=== PATIENT | male | born 1975 | race Caucasian/White ===

== ENCOUNTER 2016-03-04 18:32 | Emergency (ER) | payer OTHER ==
[~2016-03-04] VITALS: Ht 175.3 cm; Wt 96.4 kg
[~2016-03-04 18:32] MED LIST: ALPR-138 PO; LORT5TAB PO; OMEP20CA5 PO; PERC7.5T13 PO; PROM25SU8 PO; ZOCO40TA PO
[2016-03-04 19:07] VITALS: BP 144/96; PULSE 104; RESP 20; TEMP 98.7; O2SAT 96
[2016-03-04 19:45] VITALS: BP 148/83; PULSE 105; RESP 18; O2SAT 95
[2016-03-04] MEDS ORDERED: ONDANSETRON ODT 4 MG TAB PO ONE (19:45)
--- NOTE | 2016-03-04 20:07 | PD ---
HPI . Head injury Chief Complaint: Head Injury Time Seen by Provider: 19:38 Travel History International Travel<30 days: No Contact w/Intl Traveler<30days: No Traveled to known affect area: No History of Present Illness HPI Patient presents for evaluation of possible head injury. He states he was carrying in some questions decorations and this in the wires of his crisp slides. He fell face first. He believes that he had a loss of consciousness. He is now complaining of feeling dazed and nauseous. [facility] Past Medical History Anxiety: Yes High Cholesterol: Yes Diminished Hearing: No Diverticulitis: Yes GERD: Yes Kidney Stones: Yes Tetanus Vaccination: < 5 Years Influenza Vaccination: Yes Past Surgical History Surgical History: No Previous Surgery Social History Alcohol Use: Yes (SOCIALLY) Tobacco Use: No (Quit in 2011) Substance Use: No Allergies-Medications (Allergen,Severity, Reaction): Coded Allergies: Codeine (Verified Allergy, Severe, NAUSEA AND VOMITING, 03/04/16) Reported Meds & Prescriptions Reported Meds & Active Scripts Active Reported Chlorthalidone 25 Mg Tab 25 Mg PO DAILY Lorazepam 0.5 Mg Tab 0.5 Mg PO DAILY PRN Simvastatin 40 Mg Tab 40 Mg PO DAILY Omeprazole 20 Mg Tab 20 Mg PO DAILY Review of Systems Except as stated in HPI: all other systems reviewed are Neg HENT: Positive: Neck Pain Neurologic: Positive: Other (dazed), No: Focal Abnormalities, Slurred Speech Physical Exam Narrative GENERAL: Awake and alert and in no acute distress SKIN: Warm and dry. Superficial abrasions on the right side of his face. HEAD: Atraumatic. Normocephalic. No obvious trauma except for the above-noted facial abrasions. EYES: Pupils equal and round. ENT: No nasal bleeding or discharge. Mucous membranes pink and moist. NECK: Trachea midline. He does have some diffuse cervical spine tenderness. CARDIOVASCULAR: Regular rate and rhythm. RESPIRATORY: No accessory muscle use. MUSCULOSKELETAL: No obvious deformities. No edema. Moving all 4 extremities equally. NEUROLOGICAL: Awake and alert. No obvious cranial nerve deficits. Motor grossly within normal limits. Normal speech. Normal gait and normal muscular strength. PSYCHIATRIC: Appropriate mood and affect; insight and judgment normal. Data Data Last Documented VS Vital Signs Date Time Temp Pulse Resp B/P Pulse Ox O2 Delivery O2 Flow Rate FiO2 03/04/16 19:45 105 18 148/83 95 Room Air 03/04/16 19:[address] Brain W/O Iv Contrast(Rout) (03/04/16 19:40) Ct Cerv Spine W/O Contrast (03/04/16 19:40) Ondansetron Odt (Zofran Odt) (03/04/16 19:45) MDM Medical Decision Making Medical Screen Exam Complete: Yes Emergency Medical Condition: Yes Differential Diagnosis Differential diagnosis of head injury includes but is not limited to scalp contusion, concussion, intracerebral hemorrhage. Narrative Course Patient presents for evaluation of possible head injury. CT of his head and C- spine are pending. CTs are negative. Diagnosis Primary Impression: Scalp contusion Additional Impression: Neck strain Qualified Code: S16.1XXA - Neck strain, initial encounter Med/Other Pt SpecificInfo: Prescription(s) given Scripts Tramadol (Ultram)50 Mg Tab50 Mg PO Q4H PRN (PAIN) #12 TAB Ref 0 Prov:Lilibeth Andrade MD 03/04/16 Disposition: 01 DISCHARGE HOME Condition: Stable Lilibeth Andrade MD Mar 04, 2016 20:07
--- NOTE | 2016-03-04 20:18 | RADHPO ---
EXAM DATE/TIME: 03/04/2016 19:50 [facility] COMPARISON: No previous studies available for comparison. INDICATIONS : Trauma; trip and fall. RADIATION DOSE: 59.90 CTDIvol (mGy) MEDICAL HISTORY : None SURGICAL HISTORY : None. ENCOUNTER: Initial ACUITY: 1 day PAIN SCALE: 5/10 LOCATION: cranial TECHNIQUE: Multiple contiguous axial images were obtained of the head. Using automated exposure control and adj ustment of the mA and/or kV according to patient size, radiation dose was kept as low as reasonably a chievable to obtain optimal diagnostic quality images. FINDINGS: CEREBRUM: The ventricles are normal for age. No evidence of midline shift, mass lesion, hemorrhage or acute in farction. No extra-axial fluid collections are seen. POSTERIOR FOSSA: The cerebellum and brainstem are intact. The 4th ventricle is midline. The cerebellopontine angle i s unremarkable. EXTRACRANIAL: There is a right frontal scalp hematoma. SKULL: The calvaria is intact. No evidence of skull fracture. CONCLUSION: No bleed or other acute intracranial abnormality. Right frontal scalp contusion. Wilfredo Marcial MD on March 04, 2016 at 20:16 Board Certified Radiologist. This report was verified electronically.
--- NOTE | 2016-03-04 20:23 | RADHPO ---
EXAM DATE/TIME: 03/04/2016 19:50 [facility] COMPARISON: No previous studies available for comparison. INDICATIONS : Trauma; trip and fall. RADIATION DOSE: 26.01 CTDIvol (mGy) MEDICAL HISTORY : None SURGICAL HISTORY : None. ENCOUNTER: Initial ACUITY: 1 day PAIN SCALE: 5/10 LOCATION: Bilateral neck TECHNIQUE: Volumetric scanning of the cervical spine was performed. Multiplanar reconstructions in the sagittal, coronal and oblique axial planes were performed. Using automated exposure control and adjustment o f the mA and/or kV according to patient size, radiation dose was kept as low as reasonably achievable to obtain optimal diagnostic quality images. FINDINGS: VERTEBRAE: Normal vertebral body height. ALIGNMENT: No evidence of subluxation. C2-C3: The bony spinal canal is normal in size. No evidence of disc bulge or herniation. The neural forami na are bilaterally patent. C3-C4: The bony spinal canal is normal in size. No evidence of disc bulge or herniation. The neural forami na are bilaterally patent. C4-C5: The bony spinal canal is normal in size. No evidence of disc bulge or herniation. The neural forami na are bilaterally patent. C5-C6: The bony spinal canal is normal in size. No evidence of disc bulge or herniation. The neural forami na are bilaterally patent. C6-C7: The bony spinal canal is normal in size. No evidence of disc bulge or herniation. The neural forami na are bilaterally patent. C7-T1: The bony spinal canal is normal in size. No evidence of disc bulge or herniation. The neural forami na are bilaterally patent. CONCLUSION: Normal cervical spine CT. Wilfredo Marcial MD on March 04, 2016 at 20:21 Board Certified Radiologist. This report was verified electronically.
[2016-03-04] MEDS ORDERED: SIMV40TA PO (20:25)
[2016-03-04] MEDS ORDERED: LORA-373 PO (20:25)
[2016-03-04] MEDS ORDERED: OMEP20TA PO (20:25)
[2016-03-04] MEDS ORDERED: CHLO25TA2 PO (20:26)
[2016-03-04] MEDS ORDERED: FLUT1SPR22 NASAL (20:27)
[2016-03-04] MEDS ORDERED: FEXO15TA PO (20:28)
[2016-03-04] MEDS ORDERED: CYCL1TAB29 PO (20:28)
[2016-03-04] MEDS ORDERED: MEDI220T PO (20:29)
[2016-03-04] MEDS ORDERED: ULTR50TA5 PO (20:31)
[2016-03-04 21:19] VITALS: BP 142/84
== END 2016-03-04 21:21 | disposition home or self-care (01) ==
LOC: PHED 18:32
DX: S00.03XA Contusion of scalp, initial encounter (principal); S16.1XXA Strain of muscle, fascia and tendon at neck level, initial encounter; W19.XXXA Unspecified fall, initial encounter
CPT/HCPCS: 70450; 72125